=== PATIENT | male | born 1980 | race Two or more races ===

== ENCOUNTER 2020-03-07 08:11 | Inpatient (IN) | payer OTHER ==
[~2020-03-07] VITALS: Ht 170.2 cm; Wt 96.2 kg
--- NOTE | 2020-03-07 08:11 | NUR ---
PT BIBRA FROM THE STREET C/O ALTERED MENTAL STATUS. PT IS AAOX2, NOT IN RESPIRATORY DISTRESS, HOOKED TO CHIEF CLINICAL OFFICER, KEPT RESTED AND COMFORTABLE. WILL CONTINUE TO MONITOR.
--- NOTE | 2020-03-07 08:20 | NUR ---
URINAL GIVEN BUT UANBLE TO PROVIDE URINE SPECIMEN THIS TIME.
[2020-03-07] MEDS ORDERED: LORAZEPAM INJ 2 MG/ML VIAL IVP ONE (08:30)
[2020-03-07] MEDS ORDERED: IV NS 0.9% 1,000 ML BAG IV ONE ×2 (08:30→09:30)
--- NOTE | 2020-03-07 08:30 | NUR ---
SEEN AND EXAMINED BY DR. DEWEY.
[2020-03-07] MEDS ORDERED: LORAZEPAM INJ 2 MG/ML VIAL ONE (08:33)
[2020-03-07 09:09] LABS: MONOCYTES # (AUTO) 0.9 /CMM (0.1-1.30); NEUTROPHILS # (AUTO) 14.3 /CMM (1.8-8.9); WHITE BLOOD COUNT (AUTO) 16.7 K/uL (4.3-11.0)
[2020-03-07 09:11] LABS: BASOPHILS % (AUTO) 0.2 % (0.0-2.0); HEMATOCRIT 51 % (39-51); HEMOGLOBIN 16.7 g/dL (13.5-17.5); LYMPHOCYTES # (AUTO) 1.5 /CMM (0.8-4.8); LYMPHOCYTES % (AUTO) 8.9 % (20.0-44.0); MEAN CORPUSCULAR HGB CONC 33 g/dl (31.0-36.0); MEAN CORPUSCULAR VOLUME 89 fL (80-96); MONOCYTES % (AUTO) 5.5 % (2.0-12.0); NEUTROPHILS % (AUTO) 85.4 % (43.0-81.0); PLATELET COUNT (AUTO) 574 /CMM (150-450); RED BLOOD CELL COUNT(AUTO) 5.74 MIL/uL (4.5-6.0)
--- NOTE | 2020-03-07 09:17 | NUR ---
BUSINESS LAW PROFESSOR AT BEDSIDE FOR XRAY.
[2020-03-07 09:22] LABS: ALBUMIN 4.3 g/dL (3.4-5.0); ALCOHOL, BLOOD < 3 mg/dL (0-0); ALKALINE PHOSPHATASE 94 U/L (46-116); BILIRUBIN,DIRECT 0.1 mg/dL (0.0-0.2); BILIRUBIN,TOTAL 0.6 mg/dL (0.2-1.0); CALCIUM, SERUM 8.5 mg/dL (8.5-10.1); CARBON DIOXIDE 15 mmol/L (21-32); CHLORIDE 98 mmol/L (98-107); CREATININE 5.5 mg/dL (0.6-1.3); GLUCOSE 130 mg/dL (74-106); SODIUM SERUM 135 mmol/L (136-145); TOTAL PROTEIN, SERUM 9.1 g/dL (6.4-8.2); UREA NITROGEN, BLOOD 44 mg/dL (7-18)
[2020-03-07 09:24] LABS: ACETAMINOPHEN 0 ug/ml (10-30)
[2020-03-07 09:26] LABS: POTASSIUM 6.3 mmol/L (3.5-5.1)
[2020-03-07] MEDS ORDERED: CEFEPIME 1 GM in IV D5W 50 ML IV ONE (09:30)
[2020-03-07] MEDS ORDERED: VANCOMYCIN 1 GM in IV D5W 250 ML IV ONE (09:30)
--- NOTE | 2020-03-07 09:40 | NUR ---
PT IS WHEELED TO CT SCAN VIA [facility].
[2020-03-07 09:45] LABS: BILIRUBIN,URINE Negative (NEGATIVE); COLOR,URINE YELLOW (YELLOW); LEUKOCYTE ESTERASE ,URINE Negative (NEGATIVE); NITRITE, URINE Negative (NEGATIVE); PROTEIN,URINE Trace mg/dl (NEGATIVE); UGLUCOSE Negative (NEGATIVE); UROBILINOGEN,URINE 0.2 EU/dL (0.2)
[2020-03-07 09:46] LABS: BACTERIA,URINE Few /HPF (None Seen); SQUAMOUS EPITHELIAL CELL,UR Rare /HPF (None Seen)
[2020-03-07 09:52] LABS: ALANINE AMINOTRANSFERASE 3907 U/L (12-78); ASPARTATE AMINOTRANSFERASE 2806 U/L (15-37)
--- NOTE | 2020-03-07 11:44 | NUR ---
LAB CALLED PT COVID NEGATIVE (-)
[2020-03-07 12:16] LABS: OSMOLALITY,SERUM 312 mOS/kg (278-305); OSMOLALITY,URINE 152 mOS/kg (340-1090)
--- NOTE | 2020-03-07 12:18 | NUR ---
PT IS BACK FROM THE CT SCAN.
[2020-03-07 14:09] LABS: CREATINE KINASE, TOTAL 101600 U/L (39-308)
[2020-03-07] MEDS ORDERED: Z GUARD REMEDY 2 OZ OINT TP PRN (14:30)
[2020-03-07] MEDS ORDERED: IV NS 0.9% 1,000 ML IV PRN ×2 (14:30→16:01)
--- NOTE | 2020-03-07 15:00 | NUR ---
BEHAVIORAL HEALTH CARE MANAGER AT BEDSIDE FOR ULTRASOUND.
[2020-03-07] MEDS ORDERED: HEPARIN SODIUM, PORCINE 5000 UNITS/1 ML VIAL IV ONE (16:30)
[2020-03-07] MEDS ORDERED: HEPARIN SODIUM, PORCINE 5000 UNITS/1 ML VIAL ONE (16:31)
[2020-03-07] MEDS: HEPARIN INFUSION/D5W 500 ML IV PRN (16:35)
--- NOTE | 2020-03-07 16:35 | NUR ---
HEPARIN DRIP STARTED REPEAT COAGS AFTER 6HRS AT 2235H.
[2020-03-07] MEDS ORDERED: SODIUM POLYSTYRENE SULFONATE 15 G/60 ML BOTTLE PO ONE (20:00)
--- NOTE | 2020-03-07 20:49 | NUR ---
SPOKE TO PHARMACY REGARDING HEPARIN DRIP, AT 2098, WILL TITRATE DRIP BASED ON PROTOCOL. ALSO, TO PLACE ORDER FOR EDGAR @6846
--- NOTE | 2020-03-07 23:07 | NUR ---
PER PROTOCOL, NO CHANGE TO HEPARIN DRIP.
[2020-03-07 23:27] LABS: BASOPHILS % (AUTO) 0.1 % (0.0-2.0); HEMATOCRIT 48 % (39-51); HEMOGLOBIN 15.8 g/dL (13.5-17.5); LYMPHOCYTES # (AUTO) 1.6 /CMM (0.8-4.8); LYMPHOCYTES % (AUTO) 12.2 % (20.0-44.0); MEAN CORPUSCULAR HGB CONC 33 g/dl (31.0-36.0); MEAN CORPUSCULAR VOLUME 87 fL (80-96); MONOCYTES # (AUTO) 0.7 /CMM (0.1-1.30); MONOCYTES % (AUTO) 5.3 % (2.0-12.0); NEUTROPHILS # (AUTO) 10.8 /CMM (1.8-8.9); NEUTROPHILS % (AUTO) 82.4 % (43.0-81.0); PLATELET COUNT (AUTO) 435 /CMM (150-450); RED BLOOD CELL COUNT(AUTO) 5.51 MIL/uL (4.5-6.0)
[2020-03-07] MEDS ORDERED: FUROSEMIDE 100 MG/10 ML VIAL IV ONE (23:30)
[2020-03-07] MEDS ORDERED: Sodium Bicarbonate 100 MEQ in IV D5/0.45 NACL 1,000 ML IV PRN (23:30)
[2020-03-07 23:38] LABS: ALBUMIN 3.1 g/dL (3.4-5.0); BILIRUBIN,TOTAL 0.6 mg/dL (0.2-1.0); CALCIUM, SERUM 6.8 mg/dL (8.5-10.1); CREATININE 5.6 mg/dL (0.6-1.3); PHOSPHORUS 7.6 mg/dL (2.5-4.9); POTASSIUM 4.6 mmol/L (3.5-5.1); TOTAL PROTEIN, SERUM 6.8 g/dL (6.4-8.2)
[2020-03-07] MEDS ORDERED: SODIUM BICARBONATE SYR 50 MEQ/50 ML DISP.SYRIN ONE (23:56)
[2020-03-08] MEDS ORDERED: FUROSEMIDE 40 MG/4 ML VIAL ONE (00:07)
--- NOTE | 2020-03-08 00:25 | NUR ---
PT HAD A BM.
--- NOTE | 2020-03-08 03:08 | NUR ---
PT AMBULATED TO THE RESTROOM AND BACK.
[2020-03-08] MEDS ORDERED: HYDROCODONE/APAP 5/325MG TABLET ONE ×4 (03:28→19:15)
[2020-03-08] MEDS: HYDROCODONE/APAP 5/325MG TABLET PO PRN ×3 (03:29→13:00)
[2020-03-08 05:04] LABS: BASOPHILS # (AUTO) 0.1 /CMM (0.0-0.2); HEMATOCRIT 41 % (39-51); HEMOGLOBIN 13.3 g/dL (13.5-17.5); LYMPHOCYTES # (AUTO) 1.9 /CMM (0.8-4.8); LYMPHOCYTES % (AUTO) 16.7 % (20.0-44.0); MEAN CORPUSCULAR HGB CONC 32 g/dl (31.0-36.0); MEAN CORPUSCULAR VOLUME 87 fL (80-96); MONOCYTES # (AUTO) 0.2 /CMM (0.1-1.30); MONOCYTES % (AUTO) 1.6 % (2.0-12.0); NEUTROPHILS % (AUTO) 80.7 % (43.0-81.0); PLATELET COUNT (AUTO) 338 /CMM (150-450); RED BLOOD CELL COUNT(AUTO) 4.74 MIL/uL (4.5-6.0); WHITE BLOOD COUNT (AUTO) 11.1 K/uL (4.3-11.0)
[2020-03-08 05:31] LABS: CALCIUM, SERUM 6.4 mg/dL (8.5-10.1); MAGNESIUM 2.5 mg/dL (1.8-2.4); POTASSIUM 3.4 mmol/L (3.5-5.1)
[2020-03-08 05:33] LABS: PHOSPHORUS 8.4 mg/dL (2.5-4.9)
--- NOTE | 2020-03-08 05:37 | NUR ---
APTT NOTED TO BE 40.2, PER PROTOCOL RATE WILL BE INCREASE +150. RATE AT 1250 UNITS/HR.
[2020-03-08 05:43] LABS: THYROID STIMULATING HORMONE 2.113 uIU/mL (0.358-3.74)
[2020-03-08] MEDS ORDERED: PANTOPRAZOLE 40 MG TABLET.DR PO ONE (08:29)
[2020-03-08] MEDS: PANTOPRAZOLE 40 MG TABLET.DR PO SCH (08:30)
--- NOTE | 2020-03-08 08:45 | NUR ---
troponin results of 2.[address] watts awaiting response
--- NOTE | 2020-03-08 10:30 | NUR ---
dr. watts responded. per dr watts, 'ok' nno given
[2020-03-08] MEDS: Sodium Bicarbonate 100 MEQ in IV D5/0.45 NACL 1,000 ML IV SCH ×2 (11:00→17:22)
--- NOTE | 2020-03-08 11:35 | NUR ---
Engineer Sergeant Consult: SW consult requested by inpatient for a 39year old male for homelessness. SW met with pt at ER bed 10 and conducted an assessment. Pt made poor eye contact during the assessment. Pt. alert and oriented x4 ( time, place, self, and situation). Pt appears to be in an anxious mood with distressed affect. Pt.'s speech is within normal limits. Patient states for dehydration and stated pain in the left leg. Pt. denies suicidal and homicidal ideation. Pt denies any visual or auditory hallucinations. Pt. stated he has no Hx. mental health & no psychotropic medications. Pt. stated has a history of substance abuse (methamphetamine). Pt urine results are positive for methamphetamine. Pt. also states he is been using for quite some time. Pt. appear ungroomed (dirty), malodorous, and had inappropriate to no clothing. Pt. appears to be ambulatory with a steady gait. Pt stated he is experiencing homelessness and has no other additional support system. Pt states he has been homeless for quite some time and has been living in [facility] for over a year. Pt did not give a specific location. SW also states has no income regarding his financial status. SW provided homeless resources which included shelters, showers, food prince, meals, health clinics, mental health clinics, substance abuse,and sober living arrangements referrals. Pt. was receptive to resources. [facility] provided the [phone] [facility] list. SW referred pt. to intermediate [facility] [address] [place] [phone] as nearest location. Homeless resources also include Mental health and health clinics include [facility] [address] [place] [address] ([phone]). [facility] [address] [facility] [address] ([phone]); Medical clinics: [facility] [address] [facility] [address] [address] [facility] [address], [place], [place]. ([phone]); [facility] [address] [facility], [address], [place]. [facility] provided the pt with a brief substance abuse intervention with referrals to substance abuse programs; [facility] Substance Abuse Self-help line ([phone]); [facility] [address] [place] [address] ([phone]); [facility] [address] [place] [address] ([phone]); [facility] ([phone]; [facility] ([phone]); [facility] ([phone]); [facility] ([phone]). Pt. was given the proper resources needed to find intermediate placement but denies services. SW offers clothing and pt denies resources. SW had pt. sign the homeless waiver form & it was filed in pt.'s chart. Plan: Pt. was given the appropriate resources to find intermediate placement, substance abuse clinics, and a list of sober living arrangements. Pt will be transported by his own means of transport.
[2020-03-08 12:07] LABS: *SPE ALBUMIN 3.2 g/dL (2.9-4.4); *SPE ALPHA-1-GLOBULIN 0.3 g/dL (0.0-0.4); *SPE GLOBULIN, TOTAL 3.2 g/dL (2.2-3.9); *SPE M-SPIKE Not Observed g/dL (Not Observed)
--- NOTE | 2020-03-08 12:20 | NUR ---
per lab ptt is still in process, still pending
[2020-03-08] MEDS: HEPARIN INFUSION/D5W 500 ML IV PRN (13:00)
--- NOTE | 2020-03-08 15:19 | NUR ---
POSITIVE FOR MRSA ON NARES
--- NOTE | 2020-03-08 16:00 | NUR ---
pt complaining of pain, tenderness and swelling on his left butt cheek. also warn and tender to touch. dr watts made aware. wound consult ordered.
--- NOTE | 2020-03-08 16:11 | NUR ---
urine collected sent to lab
[2020-03-08 18:30] LABS: CREATININE, URINE 210.7 MG/DL (30.0-125.0); URINE TOTAL PROTEIN 248.6 mg/dL (0-11.9)
[2020-03-08 18:31] LABS: BILIRUBIN,URINE SMALL (NEGATIVE); COLOR,URINE YELLOW (YELLOW); LEUKOCYTE ESTERASE ,URINE NEGATIVE (NEGATIVE); NITRITE, URINE NEGATIVE (NEGATIVE); PH,URINE 5.5 (5.0-8.0); PROTEIN,URINE 100 mg/dl (NEGATIVE); UGLUCOSE NEGATIVE (NEGATIVE); UROBILINOGEN,URINE 0.2 EU/dL (0.2)
[2020-03-08 18:58] LABS: BACTERIA,URINE Few /HPF (None Seen); SQUAMOUS EPITHELIAL CELL,UR Few /HPF (None Seen); WBC,URINE 0-2 /HPF (0-3)
[2020-03-08 18:59] LABS: COARSE GRANULAR CASTS,URINE Few /LPF (None Seen)
--- NOTE | 2020-03-08 19:44 | NUR ---
CALLED LAB REGARDING DRAW.
--- NOTE | 2020-03-08 19:57 | NUR ---
PLASTIC EYE TECHNICIAN AT BEDSIDE
--- NOTE | 2020-03-08 21:17 | NUR ---
CALLED LAB REGARDING APTT
--- NOTE | 2020-03-08 21:27 | NUR ---
PER PROTOCOL, NO CHANGES WILL BE MADE TO HEPARIN DRIP.
--- NOTE | 2020-03-08 21:27 | NUR ---
CO SIGNED FOR MILENA JOHNSON'S HEPARIN DRIP. PTT 63.9, NO CHANGES MADE TO HEPARIN DRIP PER PROTOCOL.
[2020-03-08] MEDS ORDERED: ZOLPIDEM TARTRATE 5 MG TABLET ONE (22:48)
[2020-03-08] MEDS: ZOLPIDEM TARTRATE 5 MG TABLET PO PRN (22:50)
[2020-03-09] MEDS ORDERED: SODIUM BICARBONATE SYR 50 MEQ/50 ML DISP.SYRIN ONE (00:06)
[2020-03-09] MEDS: Sodium Bicarbonate 100 MEQ in IV D5/0.45 NACL 1,000 ML IV SCH ×4 (00:15→23:24)
[2020-03-09 00:57] LABS: EOSINOPHIL,URINE None Seen
--- NOTE | 2020-03-09 02:41 | NUR ---
PT AWAKE IN BED, VSS.
[2020-03-09 04:34] LABS: BASOPHILS % (AUTO) 0.1 % (0.0-2.0); EOSINOPHILS % (AUTO) 0.6 % (0.0-6.0); HEMATOCRIT 32 % (39-51); HEMOGLOBIN 11.1 g/dL (13.5-17.5); LYMPHOCYTES # (AUTO) 1.2 /CMM (0.8-4.8); LYMPHOCYTES % (AUTO) 16.6 % (20.0-44.0); MEAN CORPUSCULAR HGB CONC 34 g/dl (31.0-36.0); MEAN CORPUSCULAR VOLUME 85 fL (80-96); MONOCYTES # (AUTO) 0.4 /CMM (0.1-1.30); MONOCYTES % (AUTO) 5.9 % (2.0-12.0); NEUTROPHILS # (AUTO) 5.5 /CMM (1.8-8.9); NEUTROPHILS % (AUTO) 76.8 % (43.0-81.0); PLATELET COUNT (AUTO) 288 /CMM (150-450); RED BLOOD CELL COUNT(AUTO) 3.84 MIL/uL (4.5-6.0); WHITE BLOOD COUNT (AUTO) 7.2 K/uL (4.3-11.0)
--- NOTE | 2020-03-09 04:56 | NUR ---
AWAITING FOR PTT RESULTS.
[2020-03-09 04:57] LABS: ALBUMIN 2.2 g/dL (3.4-5.0); BILIRUBIN,TOTAL 0.5 mg/dL (0.2-1.0); MAGNESIUM 2.5 mg/dL (1.8-2.4); POTASSIUM 3.1 mmol/L (3.5-5.1); TOTAL PROTEIN, SERUM 5.3 g/dL (6.4-8.2)
--- NOTE | 2020-03-09 05:32 | NUR ---
CALLED LAB REGARING PTT RESULTS.
--- NOTE | 2020-03-09 05:40 | NUR ---
TROP 1.509
--- NOTE | 2020-03-09 06:40 | NUR ---
RECIEVED CALL FROM LAB, PTT 82.6. WILL HOLD INFUSION FOR 30MINUTES, THEN DECREASE RATE BY 150 UNITS/HR PER PROTOCOL.
--- NOTE | 2020-03-09 07:05 | NUR ---
XRAY AT BEDSIDE
[2020-03-09] MEDS: HEPARIN INFUSION/D5W 500 ML IV PRN ×2 (07:10→10:01)
[2020-03-09 07:39] LABS: CALCIUM, SERUM 5.7 mg/dL (8.5-10.1); CREATININE 8.1 mg/dL (0.6-1.3)
[2020-03-09 07:40] LABS: PHOSPHORUS 10.3 mg/dL (2.5-4.9)
[2020-03-09] MEDS ORDERED: PANTOPRAZOLE 40 MG TABLET.DR PO ONE (08:06)
[2020-03-09] MEDS: PANTOPRAZOLE 40 MG TABLET.DR PO SCH (08:30)
[2020-03-09] MEDS ORDERED: HYDROCODONE/APAP 5/325MG TABLET ONE (09:12)
[2020-03-09] MEDS: HYDROCODONE/APAP 5/325MG TABLET PO PRN ×3 (10:00→20:51)
--- NOTE | 2020-03-09 11:46 | NUR ---
[facility] 310-2 MARY
--- NOTE | 2020-03-09 12:38 | NUR ---
report given to sabina tripp at 3west pt will go to 323 per charge nurse and primary rn, not 310.
[2020-03-09 13:00] VITALS: BP 115/74
--- NOTE | 2020-03-09 13:05 | NUR ---
transferred to 323-2, bedside report given to sabina
--- NOTE | 2020-03-09 13:10 | NUR ---
RN NOTES RECEIVED REPORT FROM ISAIAS WALL RN. NO APPARENT RESPIRATORY DISTRESS NOTED. NO COMPLAINED OF PAIN NOTED AT THIS TIME. WILL CONTINUE TO MONITOR.
--- NOTE | 2020-03-09 13:20 | NUR ---
RN/NOTES PATIENT REFUSED FOR SKIN ASSESSMENT/WOUND PHOTO.
[2020-03-09 16:00] VITALS: BP 114/76
[2020-03-09] MEDS: SEVELAMER CARBONATE 800 MG TABLET PO SCH (18:17)
--- NOTE | 2020-03-09 19:46 | NUR ---
TELE/RN NOTES PATIENT IS ON BED. NO APPARENT RESPIRATORY DISTRESS NOTED. NO COMPLAINED OF NOTED AT THIS TIME. IV ACCESS AT RIGHT AC # 20 WITH IV FLUID NA BICARBONATE 1L AT 125ML/HR. PATIENT IS ON HEPATIN DRIP 1100U/HR RUNNING WELL. APTT 60.6 NO CHANGES. WILL ENDORSED TO CONSOLE ASSEMBLER FOR MARJORIE.
[2020-03-09 20:00] VITALS: BP 112/77
--- NOTE | 2020-03-09 22:00 | NUR ---
pt commented he has not voided the whole day bladder scan shows 145 ml in the bladder text to MD perez order to check with bladder scan Q1 hours and if greater then 350 ml insert villarreal related this news to the patient
[2020-03-10] VITALS (7 sets, daily range): BP systolic 94–125; BP diastolic 55–83
--- NOTE | 2020-03-10 00:49 | NUR ---
bladder scanned 65 ml
--- NOTE | 2020-03-10 02:00 | NUR ---
bLADDER SCANNED 60 ML
--- NOTE | 2020-03-10 04:30 | NUR ---
BLADDER SCAN 143ML
--- NOTE | 2020-03-10 05:53 | NUR ---
ALERT AND ORIENTATED X4 CONCERNED ABOUT NOT BEING ABLE TO URINATE AT 2200 I TEXTED THE MD AND MADE HIM AWARE OF THE SITUATION OF NOT VOIDING REPLY WAS BLADDER SCAN Q1HOUR VELOZ IF GRT THAN 350 BLADDER SCANED X4X 145 ML 65ML 60ML 142ML LAST TIME AT 0430
[2020-03-10 07:59] LABS: BASOPHILS % (AUTO) 0.1 % (0.0-2.0); EOSINOPHILS % (AUTO) 0.9 % (0.0-6.0); HEMATOCRIT 29 % (39-51); HEMOGLOBIN 9.7 g/dL (13.5-17.5); LYMPHOCYTES # (AUTO) 1.3 /CMM (0.8-4.8); LYMPHOCYTES % (AUTO) 23.4 % (20.0-44.0); MEAN CORPUSCULAR HGB CONC 33 g/dl (31.0-36.0); MEAN CORPUSCULAR VOLUME 87 fL (80-96); MONOCYTES # (AUTO) 0.4 /CMM (0.1-1.30); MONOCYTES % (AUTO) 6.3 % (2.0-12.0); NEUTROPHILS # (AUTO) 3.9 /CMM (1.8-8.9); NEUTROPHILS % (AUTO) 69.3 % (43.0-81.0); PLATELET COUNT (AUTO) 152 /CMM (150-450); RED BLOOD CELL COUNT(AUTO) 3.37 MIL/uL (4.5-6.0); WHITE BLOOD COUNT (AUTO) 5.7 K/uL (4.3-11.0)
--- NOTE | 2020-03-10 08:00 | NUR ---
tele shaker repairer: notes pt complaining of bladder pain, still hasn't voided since yesterday. bladder scan done with 150ml, pt is on strict i and o. pt agreed for villarreal catheter. made aware.
--- NOTE | 2020-03-10 08:06 | NUR ---
WOUND CARE CONSULT: PT PRESENTS WITH SCRATCH GONZALES TO LEFT BUTTOCK WITH EDEMA AND INDURATION OF ENTIRE BUTTOCK, PRESENT ON ADMISSION. PT REPORTS TENDERNESS TO ENTIRE LEFT BUTTOCK. DISCUSSED WITH PLATFORM MATERIAL HANDLING SUPERVISOR AND NURSING STAFF. RN TO DISCUSS WITH PMD. PT IS CONTINENT AND INDEPENDENT WITH BED MOBILITY. WILL SEE PRN. Addendum: 03/10/20 at 0809 by ROYER SHAH WNDNU Amended: Links added.
[2020-03-10] MEDS: Sodium Bicarbonate 100 MEQ in IV D5/0.45 NACL 1,000 ML IV SCH ×4 (08:08→23:21)
[2020-03-10 08:35] LABS: MAGNESIUM 2.2 mg/dL (1.8-2.4); POTASSIUM 3.5 mmol/L (3.5-5.1)
[2020-03-10 08:40] LABS: CALCIUM, SERUM 5.3 mg/dL (8.5-10.1); CREATININE 9.6 mg/dL (0.6-1.3); PHOSPHORUS 9.9 mg/dL (2.5-4.9)
[2020-03-10] MEDS: SEVELAMER CARBONATE 800 MG TABLET PO SCH ×3 (08:50→17:34)
[2020-03-10] MEDS: PANTOPRAZOLE 40 MG TABLET.DR PO SCH (08:50)
--- NOTE | 2020-03-10 09:00 | NUR ---
tele lean manufacturing engineer: notes villarreal catheter [id number] inserted, jacob. well. no bleeding noted. will continue to monitor.
[2020-03-10] MEDS: ONDANSETRON HCL/PF 4 MG/2 ML VIAL IVP PRN (11:23)
[2020-03-10] MEDS: ACETAMINOPHEN 325 MG TABLET PO PRN (12:10)
--- NOTE | 2020-03-10 12:25 | NUR ---
m/s overlock operator: notes dr watts here and informed md re: left buttock possible abscess and also pt doesn't feel good with s/s of no appetite, nauseous, body aches with headache. per dr. watts pt has rhabdomyolysis. also pt has been asking if his villarreal can be remove. dr. watts will see pt as stated.
--- NOTE | 2020-03-10 12:45 | NUR ---
tele assistant production manager: md visit dr. watts at bedside and and informed pt that we need to monitor his i&o and with orders for us on left buttock for possible abscess and start vanco and zosyn pharmacy to dose. orders carried out and acknowledged.
[2020-03-10] MEDS: CALCIUM ACETATE 667 MG TABLET PO SCH ×2 (13:09→17:33)
[2020-03-10] MEDS: HYDROCODONE/APAP 5/325MG TABLET PO PRN ×2 (13:09→22:17)
[2020-03-10] MEDS ORDERED: VANCOMYCIN 1 GM in IV D5W 250 ML IV ONE (14:00)
[2020-03-10] MEDS: LORAZEPAM 1 MG TABLET PO PRN (15:07)
[2020-03-10] MEDS: PIPERACILLIN /TAZOBACTAM 3.375 G in IV D5W 50 ML IV SCH ×2 (15:11→22:04)
--- NOTE | 2020-03-10 16:00 | NUR ---
tele cut filer: notes pt sounds asleep. no distress noted. will continue to monitor.
--- NOTE | 2020-03-10 19:25 | NUR ---
tele potato chip cooker machine: notes report given to trinity banuelos) for continuity of care.
--- NOTE | 2020-03-10 19:30 | NUR ---
PSYCHIATRIC ASSISTANT OPENING NOTE PATIENT RECEIVED IN BED. A/OX4. TOLERATING ROOM AIR. RESPIRATIONS ARE EVEN AND UNLABORED. NO S/S SOB NOTED. C/O PAIN, WILL SEE WHEN PAIN MEDICATION IS AVAILABLE. EXTERNAL TELE MONITOR READ SINUS RHTYHM . IN NO APPARENT DISTRESS. IV ACCESS IN LEFT HAND PATENT AND SALINE LOCKED, WELL RAC#20 RUNNING BICARD @150ML/HR. VELOZ CATHETER IS PRESENT AND DRAINING TO GRAVITY, BED IS LOW AND LOCKED, HOB ELEVATED IN SEMI FOWLERS, SIDE RIALS UP X2, GREGORY LIGHT WITHIN REACH. WILL CONTINUE TO MONITOR THROUGHOUT SHIFT.
[2020-03-10] MEDS: ZOLPIDEM TARTRATE 5 MG TABLET PO PRN (20:48)
--- NOTE | 2020-03-10 20:51 | NUR ---
telemedicine physician note administered prn ambien per patient request. patient is in pain but would like sleeping aid first.
[2020-03-11] VITALS: BP_SYST 116; BP_SYST 118; BP_DIAS 79; BP_DIAS 82
[2020-03-11] MEDS: HYDROCODONE/APAP 5/325MG TABLET PO PRN ×4 (03:26→18:28)
[2020-03-11 04:00] VITALS: BP 110/62
[2020-03-11] MEDS: PIPERACILLIN /TAZOBACTAM 3.375 G in IV D5W 50 ML IV SCH ×4 (06:17→23:02)
[2020-03-11 06:45] LABS: BASOPHILS % (AUTO) 0.2 % (0.0-2.0); EOSINOPHILS % (AUTO) 1.2 % (0.0-6.0); HEMATOCRIT 28 % (39-51); HEMOGLOBIN 9.7 g/dL (13.5-17.5); LYMPHOCYTES # (AUTO) 1.3 /CMM (0.8-4.8); MEAN CORPUSCULAR HGB CONC 35 g/dl (31.0-36.0); MEAN CORPUSCULAR VOLUME 84 fL (80-96); MONOCYTES # (AUTO) 0.5 /CMM (0.1-1.30); MONOCYTES % (AUTO) 7.8 % (2.0-12.0); NEUTROPHILS # (AUTO) 4.4 /CMM (1.8-8.9); NEUTROPHILS % (AUTO) 70.8 % (43.0-81.0); PLATELET COUNT (AUTO) 243 /CMM (150-450); RED BLOOD CELL COUNT(AUTO) 3.36 MIL/uL (4.5-6.0); WHITE BLOOD COUNT (AUTO) 6.3 K/uL (4.3-11.0)
[2020-03-11 07:20] LABS: ALBUMIN 1.8 g/dL (3.4-5.0); BILIRUBIN,TOTAL 0.5 mg/dL (0.2-1.0); MAGNESIUM 1.8 mg/dL (1.8-2.4); TOTAL PROTEIN, SERUM 4.7 g/dL (6.4-8.2)
--- NOTE | 2020-03-11 07:30 | NUR ---
CHAINSTITCH HEMMER CLOSING NOTE PATIENT RESTING IN BED. A/OX4. TOLERATING ROOM AIR. NO RESP DISTRESS. MANAGED PAIN WITH NORCO. TELE MONITOR READ SINUS RHTYHM .NO DISTRESS. IV ACCESS MAINTAINED RAC#20 RUNNING BICARD @150ML/HR. VELOZ CATHETER IS MAINTAINED. PATIENT DID HAVE COMPLAINT THAT HE FELT IF HE NEEDED TO PEE. I DID DEFLATE THE VELOZ AND ADVANCE AND REINFLATE. URINE DID COME OUT. BED REMAINS LOW AND LOCKED, HOB ELEVATED IN SEMI FOWLERS, SIDE RIALS UP X2, GREGORY LIGHT WITHIN REACH. WILL ENDORSE TO NEXT SHIFT.
--- NOTE | 2020-03-11 07:30 | NUR ---
FIRE HOSE CURER OPENING NOTE RECEIVED PATIENT IN BED. A/O X4. NO SOB NOTED. NO S/SX OF RESPIRATORY DISTRESS. IN PAIN, NORCO GIVEN ORDERED. IV SITE R AC #20. L HAND #20 G. SAFETY MEASURES MAINTAINED. BED IN LOWEST POSITION, LOCKED. SIDE RAILS UP X 2. CALL LIGHT WITHIN REACH. WILL CONTINUE PLAN OF CARE.
--- NOTE | 2020-03-11 07:40 | NUR ---
GANG MOWER OPERATOR NOTES RECEIVED A CALL FROM [facility] (LAB), CRITICAL LAB VALUE K+ 2.8 Ca 5.[address] SARAH WHITESIDE MADE AWARE. NO NEW ORDERS.
[2020-03-11 07:45] LABS: CALCIUM, SERUM 5.1 mg/dL (8.5-10.1); CREATININE 10.7 mg/dL (0.6-1.3); POTASSIUM 2.8 mmol/L (3.5-5.1)
[2020-03-11 07:46] LABS: PHOSPHORUS 9.6 mg/dL (2.5-4.9)
[2020-03-11 08:00] VITALS: BP 201/103
[2020-03-11] MEDS: CALCIUM ACETATE 667 MG TABLET PO SCH ×3 (09:21→18:28)
[2020-03-11] MEDS: PANTOPRAZOLE 40 MG TABLET.DR PO SCH (09:21)
[2020-03-11] MEDS: SEVELAMER CARBONATE 800 MG TABLET PO SCH ×3 (09:21→18:28)
[2020-03-11] MEDS: Sodium Bicarbonate 100 MEQ in IV D5/0.45 NACL 1,000 ML IV SCH ×2 (09:26→18:29)
[2020-03-11] MEDS: POTASSIUM CHLORIDE 20 MEQ TAB.PRT.SR PO SCH ×3 (09:31→12:32)
--- NOTE | 2020-03-11 10:15 | NUR ---
RN NIGHT NOTES RECEIVED ANOTHER CALL FROM LAB NAMED TATI, CRITICAL LAB VALUE [id number]. INFORMED DR. SARAH WHITESIDE. NO NEW ORDERS.
[2020-03-11 12:00] VITALS: BP 120/78
[2020-03-11 16:00] VITALS: BP 132/84
[2020-03-11] MEDS ORDERED: HEPARIN INFUSION/D5W 500 ML IV PRN (18:00)
[2020-03-11] MEDS ORDERED: HEPARIN SODIUM, PORCINE 5000 UNITS/1 ML VIAL IV ONE (19:15)
[2020-03-11] MEDS: ZOLPIDEM TARTRATE 5 MG TABLET PO PRN (19:24)
--- NOTE | 2020-03-11 20:51 | NUR ---
URBAN DESIGN CONSULTANT CLOSING NOTES PATIENT IN BED. A/O X4. NO SOB NOTED. VERBALIZING PAIN ON THE L LOWER EXT. NORCO PRN GIVEN. MD IS MADE AWARE, DR SMITH ORDERED FOR CT LUMBAR SPINE, CT PELVIS AND ARTERIAL DUPLEX. VELOZ CATH NO OUTPUT. FLUSHED AND IRRIGATED DONE. BOTH IV LINES WERE OCCLUDED. TRIED TO FLUSH BUT HAS RESISTANCE. ORDERED FOR MIDLINE INSERTION. DR THOMAS REINSERTED ON THE LJ. ROUTINE MEDS WERE GIVEN ORDERED. SAFETY MEASURES MAINTAINED. BED IN LOWEST POSITION, LOCKED. SIDE RAILS UP X 2. CALL LIGHT WITHIN REACH. WILL ENDORSE TO FIELD ASSEMBLY SUPERVISOR FOR CONTINUITY OF CARE.
[2020-03-11 20:53] VITALS: BP 115/67
[2020-03-11] MEDS ORDERED: LORAZEPAM INJ 2 MG/ML VIAL IV ONE (21:00)
--- NOTE | 2020-03-11 22:09 | NUR ---
INFORMED DR WARD RE: APTT RESULT TODAY AND RESULT OF US OF THE LEFT EXTREMITY NEGATIVE FOR STENOSIS OR THROMBOSIS. AND CLARIFIED IF HEPARIN 6,000 UNITS BOLUS AND HEPARIN DRIP STILL TO BE GIVEN.
[2020-03-12 00:12] VITALS: BP 125/81
[2020-03-12] MEDS: HYDROCODONE/APAP 5/325MG TABLET PO PRN ×3 (00:49→18:52)
[2020-03-12] MEDS: Sodium Bicarbonate 100 MEQ in IV D5/0.45 NACL 1,000 ML IV SCH ×4 (02:23→23:26)
[2020-03-12] MEDS: LORAZEPAM 1 MG TABLET PO PRN ×3 (03:27→16:26)
[2020-03-12] MEDS: ACETAMINOPHEN 325 MG TABLET PO PRN ×2 (03:27→14:31)
[2020-03-12 04:56] VITALS: BP 139/89
--- NOTE | 2020-03-12 06:00 | NUR ---
USED CAR LOT ATTENDANT CLOSING NOTES: PATIENT IN BED, ASLEEP, EASILY AROUSABLE. NO S/S OF DISTRESS NOTED. COMPLAINED OF PAIN, PRN MEDS GIVEN. CALL LIGHT WITHIN REACH. BED IN LOWEST AND LOCKED POSITION.
--- NOTE | 2020-03-12 06:02 | NUR ---
INFORMED DR HYDE RE: URINE OUTPUT ONLY 75 ML.
[2020-03-12] MEDS: PIPERACILLIN /TAZOBACTAM 3.375 G in IV D5W 50 ML IV SCH ×3 (06:18→22:38)
--- NOTE | 2020-03-12 06:24 | NUR ---
IV ON THE LEFT HAND G20 PULLED OUT BY THE PATIENT, TIP IS INTACT. NO BLEEDING NOTED.
[2020-03-12 07:09] LABS: BASOPHILS % (AUTO) 0.1 % (0.0-2.0); EOSINOPHILS % (AUTO) 2.3 % (0.0-6.0); HEMATOCRIT 31 % (39-51); HEMOGLOBIN 10.7 g/dL (13.5-17.5); LYMPHOCYTES # (AUTO) 1.4 /CMM (0.8-4.8); LYMPHOCYTES % (AUTO) 21.5 % (20.0-44.0); MEAN CORPUSCULAR HGB CONC 35 g/dl (31.0-36.0); MEAN CORPUSCULAR VOLUME 84 fL (80-96); MONOCYTES # (AUTO) 0.6 /CMM (0.1-1.30); MONOCYTES % (AUTO) 8.5 % (2.0-12.0); NEUTROPHILS # (AUTO) 4.4 /CMM (1.8-8.9); NEUTROPHILS % (AUTO) 67.6 % (43.0-81.0); PLATELET COUNT (AUTO) 257 /CMM (150-450); RED BLOOD CELL COUNT(AUTO) 3.69 MIL/uL (4.5-6.0); WHITE BLOOD COUNT (AUTO) 6.6 K/uL (4.3-11.0)
--- NOTE | 2020-03-12 07:15 | NUR ---
DUMPER OPERATOR OPENING NOTES RECEIVED PATIENT ASLEEP IN BED, EASILY AWAKENS. PT IS A/O X4, DENIES PAIN OR ANY DISCOMFORTS AT THIS TIME. ON ROOM AIR, BREATHING EVEN AND UNLABORED. EXTERNAL BEVERAGE SERVER SHOWS NSR WITH HR ON THE 70'S, NO S/S OF CARDIAC DISTRESS NOTED. MIDLINE ON LJ INTACT AND PATENT WITH IVF OF SODIUM BICARBONATE IN D5 1/2 NS AT 150ML INFUSING WELL. VELOZ IN PLACE WITH NO URINE OUTPUT NOTED AT THIS TIME. SAFETY MEASURES MAINTAINED: BED IN LOWEST POSITION, LOCKED. SIDE RAILS UP X 2 AND CALL LIGHT WITHIN REACH. WILL CONTINUE TO MONITOR PT ACCORDINGLY. .
[2020-03-12 07:31] LABS: ALBUMIN 1.6 g/dL (3.4-5.0); BILIRUBIN,TOTAL 0.4 mg/dL (0.2-1.0); MAGNESIUM 1.8 mg/dL (1.8-2.4); POTASSIUM 3.4 mmol/L (3.5-5.1); TOTAL PROTEIN, SERUM 4.7 g/dL (6.4-8.2)
[2020-03-12] MEDS: PANTOPRAZOLE 40 MG TABLET.DR PO SCH (08:35)
[2020-03-12] MEDS: SEVELAMER CARBONATE 800 MG TABLET PO SCH ×3 (08:35→18:11)
[2020-03-12] MEDS: CALCIUM ACETATE 667 MG TABLET PO SCH ×3 (08:36→18:11)
[2020-03-12 08:54] LABS: CALCIUM, SERUM 5.4 mg/dL (8.5-10.1); CREATININE 11.9 mg/dL (0.6-1.3); PHOSPHORUS 10.1 mg/dL (2.5-4.9)
[2020-03-12] MEDS ORDERED: CALCIUM CHLORIDE 1,000 MG/10 ML DISP.SYRIN IV ONE (09:30)
--- NOTE | 2020-03-12 09:49 | NUR ---
RN NOTES RECEIVED CALL FROM DIRECTOR OF ENVIRONMENTAL SERVICES CÉSAR WILDER PT HAS CRITICAL LABS: BUN 85, CREATININE 11.9, PHOS 10.1 AND CA 5.4, DR SMITH MADE AWARE WITH ORDER TO ADMINISTER CALCIUM GLUCONATE 2MG IV. WILL CARRY OUT ORDER.
[2020-03-12] MEDS ORDERED: Calcium Gluconate 1GM/10ML 9.3 MEQ in IV D5W 250 ML IV ONE (10:00)
--- NOTE | 2020-03-12 10:29 | NUR ---
RN NOTES PT NOTED ANXIOUS AND REQUESTED FOR ATIVAN, ATIVAN 1MG PO ADMINISTERED AT 1013. WILL CONTINUE TO MONITOR
--- NOTE | 2020-03-12 11:30 | NUR ---
RN NOTES PT C/O PAIN LEFT LEG PAIN, PRN NORCO 5/325 TAB PO ADMINISTERED AT 1129 WILL CONTINUE TO MONITOR AND REASSESS PT.
--- NOTE | 2020-03-12 12:21 | NUR ---
RN NOTES PT NOTED WHEEZING WITH MILD SOB ON EXERTION, SP02 CHECKED AND WAS 92%. SUPPLEMENTAL 02 VIA N/C @2LPM ADMINISTERED AND SP02 WENT UP TO 95% AND BREATHING IMPROVED. WILL CONTINUE TO MONITOR
--- NOTE | 2020-03-12 12:31 | NUR ---
RN NOTES DR LOPES SPOKE TO PT AND EXPLAINED ABOUT PLACEMENT OF HD CATHETER AND HD, PT VERBALIZED UNDERSTANDING. CONSENTS SIGNED AND FILED IN CHART.
--- NOTE | 2020-03-12 19:39 | NUR ---
CARE MANAGEMENT SPECIALIST CLOSING NOTES PATIENT AWAKE AND RESTING AT MODERATE HIGH BACKREST POSITION AT THIS TIME. A/O X4. ABLE TO MAKE NEEDS KNOWN. ON SUPPLEMENTAL 02 VIA N/C @ 2LPM, BREATHING EVEN AND UNLABORED. EXTERNAL SAMPLE TAILOR SHOWS NSR WITH HR ON THE 70'S, NO S/S OF CARDIAC DISTRESS NOTED. MIDLINE ON LJ INTACT AND PATENT WITH IVF RUNNING ORDERED. VELOZ IN PLACE WITH NO URINE OUTPUT OF 50ML THIS SHIFT. ALL NEEDS AND CARE ATTENDED WELL. SAFETY MEASURES MAINTAINED: BED IN LOWEST POSITION, LOCKED. SIDE RAILS UP X 2 AND CALL LIGHT WITHIN REACH. ENDORSED TO RN SOVEM FOR MARJORIE.
--- NOTE | 2020-03-12 19:40 | NUR ---
GEOSPATIAL INFORMATION TECHNOLOGIST OPENING NOTES RECEIVED PATIENT IN BED AWAKE AND ALERT X4. NO S/SX OF ACUTE RESPIRATORY DISTRESS NOTED. BREATHING EVEN AND UNLABORED. EXTERNAL TOOTH CUTTER PINION SHOWS NSR WITH HR ON THE 70'S. MIDLINE ON LJ INTACT AND PATENT WITH IVF OF SODIUM BICARBONATE IN D5 1/2 NS AT 150ML INFUSING WELL. DENIES PAIN OR DISCOMFORT AT THIS TIME. VELOZ IN PLACE WITH 50ML OF URINE OUTPUT NOTED AT THIS TIME. SAFETY MEASURES MAINTAINED. BED IN LOWEST POSITION, LOCKED. SIDE RAILS UP X 2 AND CALL LIGHT WITHIN REACH. WILL CONTINUE TO MONITOR PT ACCORDINGLY. .
[2020-03-12 20:00] VITALS: BP 142/100
--- NOTE | 2020-03-12 21:00 | NUR ---
BLOW OFF WORKER NOTES FOLLOW UP DR. THOMAS REGARDING INSERTION OF HD CATH AND INFORMED HIM ALSO THAT PATIENT IS SCREAMING FOR PAIN AND HE'S ONLY GETTING NORCO 5/[address] THOMAS ORDERED DILAUDID 0.5MG IV PRN AND HE'LL DO HD CATH INSERTION IN AM, ORDER NOTED AND CARRIED OUT
[2020-03-12] MEDS: HYDROMORPHONE 1 MG/1 ML DISP.SYRIN IV PRN (21:09)
[2020-03-13] VITALS: BP 135/93
[2020-03-13] MEDS: HYDROMORPHONE 1 MG/1 ML DISP.SYRIN IV PRN ×6 (01:18→22:45)
[2020-03-13] MEDS: LORAZEPAM 1 MG TABLET PO PRN ×2 (03:28→12:31)
[2020-03-13] MEDS: Sodium Bicarbonate 100 MEQ in IV D5/0.45 NACL 1,000 ML IV SCH ×3 (05:59→20:22)
[2020-03-13] MEDS: PIPERACILLIN /TAZOBACTAM 3.375 G in IV D5W 50 ML IV SCH ×3 (06:20→23:10)
--- NOTE | 2020-03-13 06:29 | NUR ---
NET DEVELOPMENT MANAGER NOTES: PATIENT REQUESTED HIS VELOZ CATHETER TO BE REMOVED. EXPLAINED PT RISK VS BENEFITS. INTERNIST MEDICAL DOCTOR MD SYLVIA AND CHARGE NURSE MADE AWARE. VELOZ CATHETER REMOVED PER PT'S REQUEST.
[2020-03-13 07:35] LABS: BASOPHILS % (AUTO) 0.2 % (0.0-2.0); EOSINOPHILS % (AUTO) 2.1 % (0.0-6.0); HEMATOCRIT 31 % (39-51); HEMOGLOBIN 10.6 g/dL (13.5-17.5); LYMPHOCYTES # (AUTO) 1.7 /CMM (0.8-4.8); MEAN CORPUSCULAR HGB CONC 35 g/dl (31.0-36.0); MEAN CORPUSCULAR VOLUME 83 fL (80-96); MONOCYTES # (AUTO) 0.8 /CMM (0.1-1.30); MONOCYTES % (AUTO) 8.7 % (2.0-12.0); NEUTROPHILS # (AUTO) 6.2 /CMM (1.8-8.9); PLATELET COUNT (AUTO) 278 /CMM (150-450); RED BLOOD CELL COUNT(AUTO) 3.69 MIL/uL (4.5-6.0); WHITE BLOOD COUNT (AUTO) 8.9 K/uL (4.3-11.0)
--- NOTE | 2020-03-13 07:45 | NUR ---
CORE SHAPER SIDES CLOSING NOTES PATIENT IN BED AWAKE AND ALERT X4. NO S/SX OF ACUTE RESPIRATORY DISTRESS NOTED. BREATHING EVEN AND UNLABORED. EXTERNAL CHANGE MANAGEMENT SPECIALIST SHOWS SR 87 . MIDLINE ON LJ INTACT AND PATENT WITH IVF OF SODIUM BICARBONATE IN D5 1/2 NS AT 150ML INFUSING WELL. DENIES PAIN OR DISCOMFORT AT THIS TIME. SAFETY MEASURES MAINTAINED. BED IN LOWEST POSITION, LOCKED. SIDE RAILS UP X 2 AND CALL LIGHT WITHIN REACH. WILL ENDORSE TO DAY SHIFT NURSE FOR CONTINUITY OF CARE.
[2020-03-13 07:57] LABS: ALBUMIN 1.7 g/dL (3.4-5.0); BILIRUBIN,TOTAL 0.4 mg/dL (0.2-1.0); MAGNESIUM 1.8 mg/dL (1.8-2.4); POTASSIUM 3.7 mmol/L (3.5-5.1)
[2020-03-13 08:00] VITALS: BP 138/83
[2020-03-13 08:42] LABS: CALCIUM, SERUM 5.9 mg/dL (8.5-10.1); PHOSPHORUS 9.9 mg/dL (2.5-4.9)
[2020-03-13] MEDS: PANTOPRAZOLE 40 MG TABLET.DR PO SCH (08:53)
[2020-03-13] MEDS: SEVELAMER CARBONATE 800 MG TABLET PO SCH ×3 (08:53→17:13)
[2020-03-13] MEDS: CALCIUM ACETATE 667 MG TABLET PO SCH ×3 (08:53→17:13)
--- NOTE | 2020-03-13 09:07 | NUR ---
MS/RN CRITICAL LABS LAB CALLED TO REPORT CRITICAL LAB VALUE CL 7.9 CA 5.[address] SMITH AT 0849, AWAITING RESPONSE, CHARGE NURSE AWARE. WILL CONTINUE TO MONITOR.
[2020-03-13] MEDS: HEPARIN SODIUM, PORCINE 5000 UNITS/1 ML VIAL SQ SCH ×2 (10:41→21:41)
[2020-03-13 12:00] VITALS: BP 146/63
[2020-03-13 16:32] VITALS: BP 152/94
--- NOTE | 2020-03-13 16:49 | NUR ---
MS/RN NOTE CONTACTED DR. GRAF AT [facility] FOR CONSULT REGARDING COMPARTMENT SYNDROME.
--- NOTE | 2020-03-13 17:23 | NUR ---
MS/RN HD CATH PLACEMENT DR. KRISTIN THOMAS PLACED HD CATH IN RIGHT GROIN. PATIENT TOLERATED WELL. WILL CONTINUE TO MONITOR.
--- NOTE | 2020-03-13 17:49 | NUR ---
MS/RN OPENING NOTE RECEIVED PATIENT FROM RAIL CAR LOADER. PATIENT A/O X4 AWAKE IN BED. PATIENT ON 3L OF OXYGEN VIA NASAL CANNULA, TOLERATING WELL. BREATHING EVEN, NON LABORED. RUE MIDLINE INTACT AND PATENT. NO ACUTE DISTRESS NOTED. SAFETY MEASURES IN PLACE, BED LOCKED AND IN LOWEST POSITION, CALL LIGHT WITHIN REACH. WILL CONTINUE TO MONITOR AND ENSURE SAFETY.
--- NOTE | 2020-03-13 18:33 | NUR ---
MS/RN OPENING NOTE PATIENT A/O X4 AWAKE IN BED. PATIENT ON 3L OF OXYGEN VIA NASAL CANNULA, TOLERATING WELL. BREATHING EVEN, NON LABORED. RUE MIDLINE INTACT AND PATENT. NO ACUTE DISTRESS NOTED. ATIVAN 1231, DILAUDID 1006, 1409, 1806. SAFETY MEASURES IN PLACE, BED LOCKED AND IN LOWEST POSITION, CALL LIGHT WITHIN REACH. WILL CONTINUE TO MONITOR AND ENSURE SAFETY.
[2020-03-13] MEDS: HYDROCODONE/APAP 5/325MG TABLET PO PRN (19:37)
--- NOTE | 2020-03-13 19:42 | NUR ---
RN NOTES PATIENT A/O X4 AWAKE IN BED. PATIENT ON 3L OF OXYGEN VIA NASAL CANNULA, TOLERATING WELL. BREATHING EVEN, NON LABORED. RUE MIDLINE INTACT AND PATENT. NO RESPIRATORY DISTRESS NOTED. PT REPORTED PAIN NORCO GIVEN FOR BREAKTHROUGH PAIN. SAFETY MEASURES IN PLACE, BED LOCKED AND IN LOWEST POSITION, CALL LIGHT WITHIN REACH. WILL CONTINUE TO MONITOR AND ENSURE SAFETY.
[2020-03-13 20:10] VITALS: BP 139/82
[2020-03-14] VITALS (7 sets, daily range): BP systolic 119–149; BP diastolic 72–92
[2020-03-14] MEDS: HYDROCODONE/APAP 5/325MG TABLET PO PRN ×2 (00:49→04:58)
[2020-03-14] MEDS: HYDROMORPHONE 1 MG/1 ML DISP.SYRIN IV PRN ×5 (02:47→22:55)
[2020-03-14] MEDS: Sodium Bicarbonate 100 MEQ in IV D5/0.45 NACL 1,000 ML IV SCH ×2 (03:14→09:41)
--- NOTE | 2020-03-14 06:33 | NUR ---
RN NOTES PATIENT A/O X4 AWAKE IN BED. PATIENT ON ROOM AIR, TOLERATING WELL. BREATHING EVEN, NON LABORED. RUE MIDLINE INTACT AND PATENT. NO RESPIRATORY DISTRESS NOTED. PT IS ALWAYS IN PAIN NORCO GIVEN AT 0458FOR BREAKTHROUGH.PT HAD HEMODIALYSIS WITH OUTPUT OF 2.6L LAST NIGHT. PAIN SAFETY MEASURES IN PLACE, BED LOCKED AND IN LOWEST POSITION, CALL LIGHT WITHIN REACH. WILL CONTINUE TO MONITOR AND ENSURE SAFETY.
[2020-03-14] MEDS: PIPERACILLIN /TAZOBACTAM 3.375 G in IV D5W 50 ML IV SCH ×3 (06:51→22:57)
[2020-03-14 07:13] LABS: BASOPHILS % (AUTO) 0.2 % (0.0-2.0); EOSINOPHILS % (AUTO) 1.4 % (0.0-6.0); HEMATOCRIT 29 % (39-51); LYMPHOCYTES # (AUTO) 1.3 /CMM (0.8-4.8); LYMPHOCYTES % (AUTO) 17.2 % (20.0-44.0); MEAN CORPUSCULAR HGB CONC 35 g/dl (31.0-36.0); MEAN CORPUSCULAR VOLUME 83 fL (80-96); MONOCYTES # (AUTO) 0.8 /CMM (0.1-1.30); MONOCYTES % (AUTO) 10.6 % (2.0-12.0); NEUTROPHILS # (AUTO) 5.5 /CMM (1.8-8.9); NEUTROPHILS % (AUTO) 70.6 % (43.0-81.0); PLATELET COUNT (AUTO) 272 /CMM (150-450); RED BLOOD CELL COUNT(AUTO) 3.43 MIL/uL (4.5-6.0); WHITE BLOOD COUNT (AUTO) 7.7 K/uL (4.3-11.0)
[2020-03-14] MEDS: CALCIUM ACETATE 667 MG TABLET PO SCH ×3 (07:34→17:08)
[2020-03-14] MEDS: LORAZEPAM 1 MG TABLET PO PRN ×2 (07:34→16:05)
[2020-03-14] MEDS: SEVELAMER CARBONATE 800 MG TABLET PO SCH ×3 (07:34→17:07)
[2020-03-14] MEDS: PANTOPRAZOLE 40 MG TABLET.DR PO SCH (07:34)
[2020-03-14 07:40] LABS: ALBUMIN 1.6 g/dL (3.4-5.0); BILIRUBIN,TOTAL 0.5 mg/dL (0.2-1.0); CALCIUM, SERUM 6.3 mg/dL (8.5-10.1); MAGNESIUM 1.7 mg/dL (1.8-2.4); PHOSPHORUS 7.5 mg/dL (2.5-4.9); POTASSIUM 3.8 mmol/L (3.5-5.1); TOTAL PROTEIN, SERUM 4.9 g/dL (6.4-8.2)
[2020-03-14 07:44] LABS: CREATININE 11.1 mg/dL (0.6-1.3)
[2020-03-14] MEDS: HEPARIN SODIUM, PORCINE 5000 UNITS/1 ML VIAL SQ SCH ×2 (08:00→20:53)
[2020-03-14] MEDS: VANCOMYCIN 500 MG in IV D5W 100 ML IV PRN (12:30)
--- NOTE | 2020-03-14 18:33 | NUR ---
MS/RN - End of shift summary Patient is A/O x 4 throughout the shift, no apparent distress, generalized body pain relieved by Dilaudid 0.5 mg IVP Q4H PRN, scrotum and left leg still swollen, HD treatment done today 3.6 liters out, tolerated well, sodium slightly improved. Per Dr. Luther, transfer to higher level of care for compartment syndrome, case management aware. Will continue with current medical management.
--- NOTE | 2020-03-14 19:55 | NUR ---
RN NOTES PATIENT A/O X4 AWAKE IN BED. PATIENT ON ROOM AIR, TOLERATING WELL. BREATHING EVEN, NON LABORED. RUE MIDLINE INTACT AND PATENT. NO RESPIRATORY DISTRESS NOTED. SAFETY MEASURES IN PLACE, BED LOCKED AND IN LOWEST POSITION, CALL LIGHT WITHIN REACH. WILL CONTINUE TO MONITOR AND ENSURE SAFETY.
[2020-03-15] MEDS: LORAZEPAM 1 MG TABLET PO PRN ×2 (01:24→17:04)
[2020-03-15] MEDS: HYDROMORPHONE 1 MG/1 ML DISP.SYRIN IV PRN ×6 (02:30→22:43)
[2020-03-15] MEDS: PIPERACILLIN /TAZOBACTAM 3.375 G in IV D5W 50 ML IV SCH (06:33)
--- NOTE | 2020-03-15 06:58 | NUR ---
RN NOTES PATIENT A/O X4 AWAKE IN BED. PATIENT ON ROOM AIR, TOLERATING WELL BREATHING EVEN, NON LABORED. RUE MIDLINE INTACT AND PATENT. NO RESPIRATORY DISTRESS NOTED. NO PAIN AT THIS TIME .SAFETY MEASURES IN PLACE, BED LOCKED AND IN LOWEST POSITION, CALL LIGHT WITHIN REACH. WILL ENDORSE CARE TO DAYSHIFT.
[2020-03-15 07:41] LABS: BASOPHILS % (AUTO) 0.2 % (0.0-2.0); EOSINOPHILS % (AUTO) 2.3 % (0.0-6.0); HEMATOCRIT 27 % (39-51); HEMOGLOBIN 9.2 g/dL (13.5-17.5); LYMPHOCYTES # (AUTO) 1.5 /CMM (0.8-4.8); LYMPHOCYTES % (AUTO) 21.2 % (20.0-44.0); MEAN CORPUSCULAR HGB CONC 34 g/dl (31.0-36.0); MEAN CORPUSCULAR VOLUME 85 fL (80-96); MONOCYTES # (AUTO) 0.6 /CMM (0.1-1.30); MONOCYTES % (AUTO) 7.8 % (2.0-12.0); NEUTROPHILS # (AUTO) 4.9 /CMM (1.8-8.9); NEUTROPHILS % (AUTO) 68.5 % (43.0-81.0); PLATELET COUNT (AUTO) 268 /CMM (150-450); RED BLOOD CELL COUNT(AUTO) 3.17 MIL/uL (4.5-6.0); WHITE BLOOD COUNT (AUTO) 7.2 K/uL (4.3-11.0)
--- NOTE | 2020-03-15 07:56 | NUR ---
MS RN OPENING NOTE PATIENT IS IN BED RESTING. PATIENT IS IN NO ACUTE DISTRESS. PATIENT IS ON ROOM AIR AND OXYGEN AT TIMES ON 2L NC. PATIENT IS HIV POSITIVE PRECAUTION. HOB ELEVATED. SAFETY PRECAUTIONS ARE IN PLACE. BED IN THE LOWEST POSITION WITH SIDE RAILS UP. CALL LIGHT WITHIN REACH. WILL CONTINUE TO MONITOR CLOSELY THROUGHOUT THE SHIFT.
[2020-03-15 08:00] VITALS: BP 154/78
[2020-03-15] MEDS: SEVELAMER CARBONATE 800 MG TABLET PO SCH ×3 (08:15→18:58)
[2020-03-15] MEDS: CALCIUM ACETATE 667 MG TABLET PO SCH ×3 (08:15→18:58)
[2020-03-15] MEDS: PANTOPRAZOLE 40 MG TABLET.DR PO SCH (08:15)
[2020-03-15] MEDS: HEPARIN SODIUM, PORCINE 5000 UNITS/1 ML VIAL SQ SCH ×2 (08:18→21:53)
[2020-03-15 08:38] LABS: CALCIUM, SERUM 6.8 mg/dL (8.5-10.1); POTASSIUM 3.8 mmol/L (3.5-5.1)
[2020-03-15 08:41] LABS: CREATININE 10.4 mg/dL (0.6-1.3)
[2020-03-15] MEDS: PIPERACILLIN /TAZOBACTAM 2.25 G in IV D5W 50 ML IV SCH ×2 (12:36→21:50)
[2020-03-15 16:00] VITALS: BP 160/70
--- NOTE | 2020-03-15 16:40 | NUR ---
SW made a follow-up visit regarding this patient. Patient is a 39 year-old male. Patient was receptive to speaking with this SW. Patient is alert and oriented x4. Patient asked this SW to help the patient transfer to a different facility as patient wants a higher level of care. SW informed patient that the case management team is the one who works with insurances to provide transfer to other facilities however this SW would coordinate with the team to complete this patient's request. Patient also provided this SW verbal consent for the interdisciplinary team to provide medical updates to Horace Dunn Jr. [phone] patient's long-time friend. SW informed this patient that this SW would speak with the interdisciplinary team and follow-up with the patient tomorrow 03/16/2020. Plan: SW to coordinate with case management regarding transfer to a higher level of care and SW remains available for all needs regarding this patient. SW to follow-up with the patient on 03/16/2020.
--- NOTE | 2020-03-15 19:30 | NUR ---
MS RN OPENING NOTE RECEIVED PATIENT IN BED. A/OX3. TOLERATING ROOM AIR. RESPIRATIONS ARE EVEN AND UNLABORED. NO S/S SOB NOTED. C/O PAIN AND REQUEST TO HAVE DILAUDID AND ATIVAN TOGETHER, INFORMED PATIENT WE GIVE THOSE MEDICATIONS 1 HOUR APART, ALTHOUGH THEY DID GIVE THEM TOGETHER I WILL NOT BE GIVING THEM TOGETHER. OFFERED CHOICE OF WHICH MEDICATION TO RECEIVE FIRST, PATIENT REQUESTED DILAUDID. IN NO APPARENT DISTRESS. IV ACCESS IN LJ MIDLINE PATENT AND SALINE LOCKED. BED IS LOW AND LOCKED, HOB ELEVATED IN SEMI FOWLERS, SIDE RIALS UP X3, GREGORY LIGHT WITHIN REACH. HD RN AT BEDSIDE. WILL CONTINUE TO MONITOR.
[2020-03-15 20:00] VITALS: BP 116/77
--- NOTE | 2020-03-15 21:00 | NUR ---
MS RN CLOSING NOTE PATIENT IS IN BED RESTING. PATIENT IS IN NO ACUTE DISTRESS. PATIENT IS ON ROOM AIR AND OXYGEN AT TIMES ON 2L NC. PATIENT IS HIV POSITIVE PRECAUTION. HOB ELEVATED. SAFETY PRECAUTIONS ARE IN PLACE. BED IN THE LOWEST POSITION WITH SIDE RAILS UP. CALL LIGHT WITHIN REACH. ENDORSE PATIENT TO TRANSPORTATION SECURITY OFFICER NURSE FOR MARJORIE.
--- NOTE | 2020-03-15 22:41 | NUR ---
MS AMADOR NOTE ADMINISTERED PRN DILUADID 0.5MG FOR PAIN 11/26. INBILATERAL LEGS AND BACK. Addendum: 03/15/20 at 2243 by MYRIAM SHEETS RN WASTE WITNESSED BY SARA AMADOR. WASTE PLACED IN PHARMACEUTICAL WASTE BIN
[2020-03-16] MEDS: LORAZEPAM 1 MG TABLET PO PRN ×3 (00:14→20:36)
--- NOTE | 2020-03-16 05:25 | NUR ---
MS RN NOTE PATIENT DID NOT RECEIVE VANCO AFTER HD 03/15/20. THERE WAS NO ENDORSEMENT TO ENTER ORDER FOR RANDOM VANCO TROUGH PRIOR TO HD. HD RN WAS ALREADY AT BEDSIDE WHEN SHIFT STARTED. HD ENDED AT 2140. INFORMED INSURANCE DEFENSE PARALEGAL THAT PATIENT HD WAS ALREADY DONE AND NO VANCO TROUGH WAS PLACED PRIOR. INSTRUCTED TO CALL NEPHRO. CALLED DR. ALMONTE'S OFFICE AT [phone]. GIVEN ANOTHER NUMBER [phone] AND [phone]. LEAD TO A CALL CENTER THAT CONNECTED ME WITH DR. AKBAR, INFORMED MD OF SITUATION. RAFFY ORDERED A STAT VANCO TROUGH AND WAIT TO AM PHARMACY COMES IN TO DOSE. ORDERS READ BACK AND WILL INFORM NEXT SHIFT.
[2020-03-16] MEDS: PIPERACILLIN /TAZOBACTAM 2.25 G in IV D5W 50 ML IV SCH ×3 (05:42→21:52)
[2020-03-16] MEDS: HYDROMORPHONE 1 MG/1 ML DISP.SYRIN IV PRN ×5 (06:06→22:28)
--- NOTE | 2020-03-16 06:09 | NUR ---
ms rn note administered prn diluadid .5mg for pain 10/10 in legs and back
[2020-03-16 07:22] LABS: CALCIUM, SERUM 7.3 mg/dL (8.5-10.1); POTASSIUM 3.7 mmol/L (3.5-5.1)
--- NOTE | 2020-03-16 07:30 | NUR ---
MS/RN OPENING NOTE Received patient awake in bed, watching TV, A&O x 4. No complaints of pain/discomfort at this time. Breathing even and non-labored on RA, no SOB noted. No cardiac distress noted. LJ Midline noted, patent and intact, and flushing well. Bed locked to its lowest position, side rails x 2 up, call light in hand. Will continue with current medical management.
[2020-03-16 08:00] VITALS: BP 147/92
--- NOTE | 2020-03-16 08:00 | NUR ---
MS RN CLOSING NOTE PATIENT RESTING IN BED. A/OX3. NO RESP DISTRESS. MANAGED PAIN WITH DILAUDID THROUGHOUT SHIFT. NO DISTRESS. IV ACCESS MAINTAINED IN LJ MIDLINE, CHANGED MIDLINE DRESSING DURING SHIFT. BED REMAINS LOW AND LOCKED, HOB ELEVATED IN SEMI FOWLERS, SIDE RIALS UP X3, CALL LIGHT WITHIN REACH. HD REMOVE 3.6L. WILL ENDORSE TO NEXT SHIFT.
[2020-03-16] MEDS: PANTOPRAZOLE 40 MG TABLET.DR PO SCH (08:12)
[2020-03-16] MEDS: SEVELAMER CARBONATE 800 MG TABLET PO SCH ×3 (08:12→17:22)
[2020-03-16] MEDS: CALCIUM ACETATE 667 MG TABLET PO SCH ×3 (08:12→17:22)
[2020-03-16] MEDS: HEPARIN SODIUM, PORCINE 5000 UNITS/1 ML VIAL SQ SCH ×2 (08:14→21:53)
--- NOTE | 2020-03-16 09:50 | NUR ---
MS/RN NOTE Iona from [facility] reported patient's CKMB 16.5. Notified Ruel REPORT CLERK, no new orders at this time.
--- NOTE | 2020-03-16 14:25 | NUR ---
SW made a follow-up visit with this patient. Patient is alert and oriented x4. Patient reported extreme leg pain however was receptive to meeting with this SW. Patient concern was his pain and the want to be transferred out to a different facility. SW informed the patient that SW could not provide much information regarding this as Case Management team oversees transfer from facilities in accordance to MD recommendations. Patient understood and stated he would bring this up with MD. Patient reported to this SW that he is HIV positive and is not taking his current medications during this admission, SW informed patient that SW would have patient's RN follow-up with medication list and MD. Patient understood. Patient also informed this SW [place] [address] for HIV care. Patient reports that prior to this admission patient was living at a sober living facility called [facility]. Patient's currently plan is following his hospitalization he will return to his sister's home in [place], [place]. Sister Gilmer [phone], patient also provided verbal consent that sister be given information regarding patient's status. SW informed patient that this SW would provided nursing staff with sister's information. SW remains available for all needs regarding this patient.
--- NOTE | 2020-03-16 16:30 | NUR ---
MS/RN NOTE Faxed authorization to release medical records to [facility]. Awaiting for documents.
--- NOTE | 2020-03-16 18:00 | NUR ---
MS/RN NOTE Patient noted with 1 episode of emesis. Per patient, "I think the reason why I vomited was because I lied down quickly after finishing my dinner." Gave mercedes NAIR as ordered.
[2020-03-16] MEDS: ONDANSETRON HCL/PF 4 MG/2 ML VIAL IVP PRN (18:37)
--- NOTE | 2020-03-16 18:54 | NUR ---
TEXTED DR. COLEY FOR STAT MRI APPROVAL.
--- NOTE | 2020-03-16 19:30 | NUR ---
MS/RN CLOSING NOTE Patient awake in bed, watching TV, A&O x 4. All needs met and attended to. No complaints of pain/discomfort throughout shift. Breathing even and non-labored on RA, no SOB noted. No cardiac distress noted. LJ Midline noted, patent and intact, and flushing well. R femoral HD cath in place with clean dry dressing intact. Fall precautions maintained. Will endorse to process manager nurse.
[2020-03-16] MEDS ORDERED: LIDOCAINE 1% INJ 50 ML MDV IJ STA (19:36)
--- NOTE | 2020-03-16 20:45 | NUR ---
RN NOTES DR. RAMSEY CAME AND DID TRICIA COMPARTMENT PRESSURE CHECK , PT TOLERATES THE PATIENT FAIRLY
[2020-03-16 21:31] VITALS: BP 139/86
[2020-03-16] MEDS: MUPIROCIN OINT 2% 22 GM TUBE TP SCH (21:53)
--- NOTE | 2020-03-16 22:30 | NUR ---
RN NOTES COMPLAINED OF LEFT LEG- DILAUDID 0.5MG IV GIVEN ORDERED, V/S STABLE
[2020-03-17] MEDS: HYDROMORPHONE 1 MG/1 ML DISP.SYRIN IV PRN ×4 (04:14→22:00)
--- NOTE | 2020-03-17 04:21 | NUR ---
rn notes COMPLAINED OF LEFT LEG PAIN- DILAUDID 0.5MG IV GIVEN ORDERED, V/S STABLE
[2020-03-17] MEDS: PIPERACILLIN /TAZOBACTAM 2.25 G in IV D5W 50 ML IV SCH ×3 (05:19→21:41)
--- NOTE | 2020-03-17 07:00 | NUR ---
RN NOTES AWAKE, MORNING CARE RENDERED, NOT IN DISTRESS, CALL LIGHT WITHIN REACH, [id number], PT. NEEDS ATTENDED
[2020-03-17 08:00] VITALS: BP 148/98
[2020-03-17] MEDS: SEVELAMER CARBONATE 800 MG TABLET PO SCH ×3 (08:32→18:01)
[2020-03-17] MEDS: CALCIUM ACETATE 667 MG TABLET PO SCH ×3 (08:32→18:01)
[2020-03-17] MEDS: PANTOPRAZOLE 40 MG TABLET.DR PO SCH (08:33)
[2020-03-17] MEDS: HEPARIN SODIUM, PORCINE 5000 UNITS/1 ML VIAL SQ SCH ×2 (08:34→21:42)
[2020-03-17] MEDS: MUPIROCIN OINT 2% 22 GM TUBE TP SCH ×2 (09:50→21:41)
[2020-03-17] MEDS: LORAZEPAM 1 MG TABLET PO PRN ×2 (10:33→23:09)
[2020-03-17] MEDS: HYDROCODONE/APAP 5/325MG TABLET PO PRN ×2 (11:37→15:32)
[2020-03-17 16:00] VITALS: BP 140/78
[2020-03-17] MEDS ORDERED: VANCOMYCIN 1 GM in IV D5W 250 ML IV ONE (18:00)
--- NOTE | 2020-03-17 19:50 | NUR ---
MS RN NOTE: PATIENT RESTING IN BED, NO ACUTE DISTRESS NOTED. BREATHING EVEN AND UNLABORED, NO SOB NOTED. MIDLINE TO LJ IN PLACE. RIGHT FEMORAL HD CATH IN PLACE, NO BLEEDING NOTED. BED LOCKED AND IN LOWEST POSITION, CALL LIGHT IN REACH. WILL CONTINUE TO MONITOR THROUGHOUT SHIFT.
[2020-03-17 20:55] VITALS: BP 147/92
[2020-03-17] MEDS: ONDANSETRON HCL/PF 4 MG/2 ML VIAL IVP PRN (21:45)
--- NOTE | 2020-03-17 22:00 | NUR ---
MS RN NOTE: PATIENT COMPLAINS OF PAIN TO LEFT LEG/THIGH 10/10, DILAUDID 0.5MG IV GIVEN PER MD ORDER. PATIENT ALSO COMPLAINS OF NAUSEA, ZOFRAN 4MG IV GIVEN PER MD ORDER. WILL CONTINUE TO MONITOR THROUGHOUT SHIFT.
--- NOTE | 2020-03-17 23:10 | NUR ---
MS RN NOTE: PATIENT ANXIOUS AND HAVING INSOMNIA AND REQUESTING FOR ATIVAN. ATIVAN 1MG 1 TAB ORAL GIVEN PER MD ORDER. WILL CONTINUE TO MONITOR THROUGHOUT SHIFT.
[2020-03-18] MEDS: HYDROMORPHONE 1 MG/1 ML DISP.SYRIN IV PRN ×6 (02:29→23:07)
--- NOTE | 2020-03-18 02:45 | NUR ---
MS RN NOTE: PATIENT COMPLAINS OF PAIN TO LEFT LEG/THIGH 10/10, DILAUDID 0.5MG IV GIVEN PER MD ORDER. WILL CONTINUE TO MONITOR THROUGHOUT SHIFT.
[2020-03-18] MEDS: VANCOMYCIN 500 MG in IV D5W 100 ML IV PRN (03:09)
[2020-03-18] MEDS: PIPERACILLIN /TAZOBACTAM 2.25 G in IV D5W 50 ML IV SCH ×3 (05:25→21:28)
[2020-03-18 06:50] LABS: BASOPHILS # (AUTO) 0.1 /CMM (0.0-0.2); BASOPHILS % (AUTO) 0.5 % (0.0-2.0); EOSINOPHILS % (AUTO) 1.5 % (0.0-6.0); HEMATOCRIT 26 % (39-51); HEMOGLOBIN 8.9 g/dL (13.5-17.5); LYMPHOCYTES % (AUTO) 15.2 % (20.0-44.0); MEAN CORPUSCULAR HGB CONC 34 g/dl (31.0-36.0); MEAN CORPUSCULAR VOLUME 86 fL (80-96); MONOCYTES % (AUTO) 7.5 % (2.0-12.0); NEUTROPHILS # (AUTO) 9.7 /CMM (1.8-8.9); NEUTROPHILS % (AUTO) 75.3 % (43.0-81.0); PLATELET COUNT (AUTO) 492 /CMM (150-450); RED BLOOD CELL COUNT(AUTO) 3.06 MIL/uL (4.5-6.0); WHITE BLOOD COUNT (AUTO) 12.9 K/uL (4.3-11.0)
--- NOTE | 2020-03-18 07:06 | NUR ---
MS RN NOTE: PATIENT RESTING IN BED, NO ACUTE DISTRESS NOTED. BREATHING EVEN AND UNLABORED, NO SOB NOTED. MIDLINE TO LJ IN PLACE. RIGHT FEMORAL HD CATH IN PLACE, NO BLEEDING NOTED. PATIENT COMPLAINS OF PAIN TO LEFT THIGH/LEG 10/, DILAUDID 0.5MG IV GIVEN PER MD ORDER. BED LOCKED AND IN LOWEST POSITION, CALL LIGHT IN REACH. WILL ENDORSE TO DAY NURSE TO CONTINUE WITH PLAN OF CARE.
[2020-03-18 07:20] LABS: CALCIUM, SERUM 7.9 mg/dL (8.5-10.1); POTASSIUM 4.1 mmol/L (3.5-5.1)
[2020-03-18 07:26] LABS: CREATININE 8.7 mg/dL (0.6-1.3)
[2020-03-18 08:00] VITALS: BP 150/99
[2020-03-18] MEDS: SEVELAMER CARBONATE 800 MG TABLET PO SCH ×3 (10:45→17:47)
[2020-03-18] MEDS: PANTOPRAZOLE 40 MG TABLET.DR PO SCH (10:45)
[2020-03-18] MEDS: CALCIUM ACETATE 667 MG TABLET PO SCH ×3 (10:45→17:47)
[2020-03-18] MEDS: HEPARIN SODIUM, PORCINE 5000 UNITS/1 ML VIAL SQ SCH ×2 (10:47→21:30)
[2020-03-18] MEDS: MUPIROCIN OINT 2% 22 GM TUBE TP SCH ×2 (10:53→21:28)
[2020-03-18] MEDS: LORAZEPAM 1 MG TABLET PO PRN ×2 (11:43→17:47)
[2020-03-18 16:00] VITALS: BP 147/89
--- NOTE | 2020-03-18 18:00 | NUR ---
MEDICATED X2 WITH ATIVAN AND X2 WITH DILAUDID.AT END OF SHIFT GIVEN ZOFRAN.
[2020-03-18] MEDS: ONDANSETRON HCL/PF 4 MG/2 ML VIAL IVP PRN (19:15)
[2020-03-18 20:00] VITALS: BP 139/79
[2020-03-18] MEDS: HYDROCODONE/APAP 5/325MG TABLET PO PRN (21:28)
--- NOTE | 2020-03-18 21:30 | NUR ---
MS RN NOTE: PATIENT STILL COMPLAINS OF PAIN TO LEFT LEG/THIGH 09/26, NORCO 5/325MG 1 TAB ORAL GIVEN PER MD ORDER. WILL CONTINUE TO MONITOR THROUGHOUT SHIFT.
--- NOTE | 2020-03-18 23:10 | NUR ---
MS RN NOTE: PATIENT COMPLAINS OF PAIN TO LEFT LEG/THIGH 10/10, DILAUDID 0.5MG IV GIVEN PER MD ORDER. WILL CONTINUE TO MONITOR THROUGHOUT SHIFT.
[2020-03-19] VITALS (10 sets, daily range): BP systolic 133–162; BP diastolic 68–99
[2020-03-19] MEDS: ONDANSETRON HCL/PF 4 MG/2 ML VIAL IVP PRN (03:07)
[2020-03-19] MEDS: HYDROMORPHONE 1 MG/1 ML DISP.SYRIN IV PRN ×5 (03:08→20:40)
[2020-03-19] MEDS: PIPERACILLIN /TAZOBACTAM 2.25 G in IV D5W 50 ML IV SCH ×3 (05:13→21:34)
--- NOTE | 2020-03-19 06:50 | NUR ---
MS RN NOTE: PATIENT RESTING IN BED, NO ACUTE DISTRESS NOTED. BREATHING EVEN AND UNLABORED, NO SOB NOTED. MIDLINE TO LJ IN PLACE. RIGHT FEMORAL HD CATH IN PLACE, NO BLEEDING NOTED. BED LOCKED AND IN LOWEST POSITION, CALL LIGHT IN REACH. WILL ENDORSE TO DAY NURSE TO CONTINUE WITH PLAN OF CARE.
[2020-03-19 08:20] LABS: BASOPHILS % (AUTO) 0.3 % (0.0-2.0); EOSINOPHILS % (AUTO) 0.6 % (0.0-6.0); HEMATOCRIT 22 % (39-51); HEMOGLOBIN 7.4 g/dL (13.5-17.5); LYMPHOCYTES # (AUTO) 1.8 /CMM (0.8-4.8); LYMPHOCYTES % (AUTO) 11.5 % (20.0-44.0); MEAN CORPUSCULAR HGB CONC 34 g/dl (31.0-36.0); MEAN CORPUSCULAR VOLUME 86 fL (80-96); MONOCYTES # (AUTO) 1.2 /CMM (0.1-1.30); MONOCYTES % (AUTO) 7.9 % (2.0-12.0); NEUTROPHILS # (AUTO) 12.3 /CMM (1.8-8.9); NEUTROPHILS % (AUTO) 79.7 % (43.0-81.0); PLATELET COUNT (AUTO) 570 /CMM (150-450); RED BLOOD CELL COUNT(AUTO) 2.54 MIL/uL (4.5-6.0); WHITE BLOOD COUNT (AUTO) 15.4 K/uL (4.3-11.0)
[2020-03-19 08:38] LABS: CALCIUM, SERUM 8.2 mg/dL (8.5-10.1); POTASSIUM 4.4 mmol/L (3.5-5.1)
[2020-03-19 08:39] LABS: CREATININE 10.3 mg/dL (0.6-1.3)
[2020-03-19] MEDS: HEPARIN SODIUM, PORCINE 5000 UNITS/1 ML VIAL SQ SCH (09:00)
[2020-03-19] MEDS: PANTOPRAZOLE 40 MG TABLET.DR PO SCH (09:16)
[2020-03-19] MEDS: CALCIUM ACETATE 667 MG TABLET PO SCH ×3 (09:16→18:17)
[2020-03-19] MEDS: SEVELAMER CARBONATE 800 MG TABLET PO SCH ×3 (09:16→18:17)
[2020-03-19] MEDS: MUPIROCIN OINT 2% 22 GM TUBE TP SCH ×2 (09:22→23:41)
--- NOTE | 2020-03-19 09:29 | NUR ---
Patient Hgb decreased 7.4 this morning, hold Heparin 5,000 units by .
[2020-03-19] MEDS: LORAZEPAM 1 MG TABLET PO PRN ×2 (13:58→23:32)
--- NOTE | 2020-03-19 18:00 | NUR ---
RN closing Patient in bed resting, does no appears distress or discomfort. Skin is warm to touch, keep clean/dry, intact midline on right upper arm. Respiratory even and unlabored with oxygen at 2L via NC O2sat 92%. Kept elevated HOB for ensure air way and aspiration precaution and lowest bed for safety. Call light within reach, will endorse retail shift leader
--- NOTE | 2020-03-19 18:00 | NUR ---
RN Opening note Received patient in bed, awaken able to responds all stimuli, Pt does no c/o pain or distress. Skin is warm to touch keep clean/dry intact IV site, respiratory even and unlabored with oxygen at 2L via NC O2sat 924%. Kept locked bed with elevated HOB for aspiration precaution and ensure airway and lowest bed foe safety. Call light within reach, will continue to monitor.
--- NOTE | 2020-03-19 20:00 | NUR ---
RN OPENING NOTES RECEIVED PATIENT IN BED AWAKE, ALERT AND ORIENTED X4. RESTLESS, ANXIOUS, NO S/S OF RESPIRATORY DISTRESS, SKIN IS WARM TO TOUCH, DRY AND INTACT. RESPIRATION EVEN AND UNLABORED WITH EQUAL RISE AND FALL OF THE CHEST. ON 2L O2 VIA NC. PATIENT ABLE TO VERBALIZE NEEDS. CALL LIGHT WITHIN REACH. BED IN LOWEST POSITION AND LOCKED. WILL CONTINUE TO MONITOR PATIENT THROUGHOUT SHIFT.
--- NOTE | 2020-03-19 20:40 | NUR ---
RN NOTES PT C/O GENERALIZED BODY PAIN. RATES PAIN LEVEL 9/10. DILAUDID 0.5ML ADMINISTERED ORDERED. WILL CONTINUE TO MONITOR.
[2020-03-19] MEDS: ZOLPIDEM TARTRATE 5 MG TABLET PO PRN (21:31)
--- NOTE | 2020-03-19 21:31 | NUR ---
RN NOTES: PATIENT REQUESTED FOR AMBIEN FOR SLEEP, AMBIEN 5MG 1 TAB GIVEN PO AT 2130. WILL CONTINUE TO MONITOR
[2020-03-19] MEDS: ACETAMINOPHEN 325 MG TABLET PO PRN (22:35)
--- NOTE | 2020-03-19 23:32 | NUR ---
RN NOTES: PATIENT WAS ANXIOUS, RESTLESS, REQUESTING ATIVAN. ATIVAN 1MG/1TAB GIVEN PO PRN ORDERED AT 2332. WILL CONTINUE TO MONITOR.
[2020-03-20] MEDS: HEPARIN SODIUM, PORCINE 5000 UNITS/1 ML VIAL SQ SCH ×2 (00:01→09:00)
[2020-03-20] MEDS: HYDROMORPHONE 1 MG/1 ML DISP.SYRIN IV PRN (05:07)
--- NOTE | 2020-03-20 05:08 | NUR ---
RN NOTES PT C/O LEFT LOWER EXTREMITY PAIN. RATES PAIN LEVEL 8/10. DILAUDID 0.5ML ADMINISTERED ORDERED AT 0507. WILL CONTINUE TO MONITOR.
[2020-03-20] MEDS: PIPERACILLIN /TAZOBACTAM 2.25 G in IV D5W 50 ML IV SCH (05:23)
[2020-03-20 06:50] LABS: BASOPHILS % (AUTO) 0.3 % (0.0-2.0); EOSINOPHILS % (AUTO) 0.4 % (0.0-6.0); HEMATOCRIT 24 % (39-51); HEMOGLOBIN 7.9 g/dL (13.5-17.5); LYMPHOCYTES # (AUTO) 1.4 /CMM (0.8-4.8); LYMPHOCYTES % (AUTO) 8.2 % (20.0-44.0); MEAN CORPUSCULAR HGB CONC 34 g/dl (31.0-36.0); MEAN CORPUSCULAR VOLUME 88 fL (80-96); MONOCYTES # (AUTO) 1.3 /CMM (0.1-1.30); MONOCYTES % (AUTO) 7.7 % (2.0-12.0); NEUTROPHILS % (AUTO) 83.4 % (43.0-81.0); PLATELET COUNT (AUTO) 646 /CMM (150-450); RED BLOOD CELL COUNT(AUTO) 2.69 MIL/uL (4.5-6.0); WHITE BLOOD COUNT (AUTO) 16.7 K/uL (4.3-11.0)
--- NOTE | 2020-03-20 07:30 | NUR ---
MS RN OPENING NOTES PATIENT IS IN BED AWAKE AND VERBALLY RESPONSIVE. ALERT AND ORIENTED X4, ABLE TO MAKE NEEDS KNOWN. BREATHING EVEN, ON O2 AT 5L VIA SIMPLE MASK, CONTINUOUS O2 SAT MONITORED, CURRENTLY BETWEEN 91-95%, DESATURATING DURING EPISODE OF EXERTION BUT NO RESPIRATORY DISTRESS. LJ MIDLINE INTACT AND PATENT. RIGHT FEMORAL HD CATH DRESSING C/D/I. SAFETY PRECS IN PLACE: BED IN LOCKED AND ON LOWEST POSITION, SR UP X2, CALL LIGHT WITHIN REACH. WILL CONTINUE TO MONITOR.
[2020-03-20 07:50] LABS: CALCIUM, SERUM 8.5 mg/dL (8.5-10.1); POTASSIUM 4.8 mmol/L (3.5-5.1)
[2020-03-20 07:52] LABS: CREATININE 9.3 mg/dL (0.6-1.3)
[2020-03-20] MEDS: SEVELAMER CARBONATE 800 MG TABLET PO SCH (07:56)
[2020-03-20] MEDS: LORAZEPAM 1 MG TABLET PO PRN (07:56)
[2020-03-20] MEDS: PANTOPRAZOLE 40 MG TABLET.DR PO SCH (07:56)
[2020-03-20] MEDS: CALCIUM ACETATE 667 MG TABLET PO SCH (07:57)
--- NOTE | 2020-03-20 08:13 | NUR ---
RN CLOSING NOTES PATIENT IN BED AWAKE, ALERT AND ORIENTED X4. NO S/S OF RESPIRATORY DISTRESS, SKIN IS WARM TO TOUCH, DRY AND INTACT. RESPIRATION EVEN AND UNLABORED WITH EQUAL RISE AND FALL OF THE CHEST. ON 2L O2 VIA NC. PATIENT ABLE TO VERBALIZE NEEDS. CALL LIGHT WITHIN REACH. BED IN LOWEST POSITION AND LOCKED. ENDORSED TO AM SHIFT
--- NOTE | 2020-03-20 08:50 | NUR ---
RN NOTES PATIENT REPORT GIVEN TO MARJORIE ROSSI, AT [facility] ([phone])
[2020-03-20] MEDS: MUPIROCIN OINT 2% 22 GM TUBE TP SCH (08:51)
--- NOTE | 2020-03-20 10:40 | NUR ---
CARBON PAPER INTERLEAFER NOTES PATIENT DISCHARGED TODAY TO [facility], [address] ROOM 4B. DISCHARGE INSTRUCTIONS AND EDUCATION PROVIDED TO PATIENT AND MARJORIE ROSSI AT [facility]. DISCHARGE FORM AND BELONGINGS LIST FORMS SIGNED BY PATIENT; BELONGINGS ACCOUNTED FOR. NAME ARMBAND AND IV LINES KEPT INTACT FOR ID TRANSFER PURPOSES. VS OBTAINED. PATIENT REFUSED PHOTO TO BE TAKEN OF SKIN ISSUE ON LEFT GLUTEUS. PATIENT WAS PICKED UP BY 2 LEAD INFRASTRUCTURE ARCHITECT VIA [facility]. CHARGE NURSE AND MD AWARE OF DISCHARGE.
[2020-03-21 09:56] LABS: *HIV-1 RNA BY PCR <20 copies/mL (.)
== END 2020-03-20 10:15 | disposition short-term general hospital (02) | DRG 351 ==
LOC: EDBD 08:16 → ER 08:16 → TRANSITION 10:38 → TELE 03-09 12:09 → MED 03-14 09:33
PROVIDERS: ATTEND Internal Medicine
PROC: 5A1D70Z Performance of Urinary Filtration, Intermittent, Less than 6 Hours Per Day (ICD-10-PCS; 2020-03-07)
PROC: 05HC33Z Insertion of Infusion Device into Left Basilic Vein, Percutaneous Approach (ICD-10-PCS; principal; 2020-03-12)
PROC: 06HY33Z Insertion of Infusion Device into Lower Vein, Percutaneous Approach (ICD-10-PCS; 2020-03-13)
PROC: 30233N1 Transfusion of Nonautologous Red Blood Cells into Peripheral Vein, Percutaneous Approach (ICD-10-PCS; 2020-03-19)
DX: T79.A22A Traumatic compartment syndrome of left lower extremity, initial encounter (principal); N17.0 Acute kidney failure with tubular necrosis; M62.82 Rhabdomyolysis; K72.00 Acute and subacute hepatic failure without coma; I21.4 Non-ST elevation (NSTEMI) myocardial infarction; E87.5 Hyperkalemia; G92 Toxic encephalopathy; L03.317 Cellulitis of buttock; E87.1 Hypo-osmolality and hyponatremia; M21.372 Foot drop, left foot; N18.9 Chronic kidney disease, unspecified; J90 Pleural effusion, not elsewhere classified; E44.0 Moderate protein-calorie malnutrition; E83.39 Other disorders of phosphorus metabolism; F15.10 Other stimulant abuse, uncomplicated; I25.10 Atherosclerotic heart disease of native coronary artery without angina pectoris; Z20.822 Contact with and (suspected) exposure to COVID-19; Z59.0 Homelessness; E83.42 Hypomagnesemia; N13.9 Obstructive and reflux uropathy, unspecified; E83.51 Hypocalcemia; E87.2 Acidosis; E87.70 Fluid overload, unspecified; F41.9 Anxiety disorder, unspecified; M48.061 Spinal stenosis, lumbar region without neurogenic claudication; X58.XXXA Exposure to other specified factors, initial encounter; Y92.9 Unspecified place or not applicable
CPT/HCPCS: 36415; 70450-TC; 71045-TC; 72131-TC; 72192-TC; 72195-TC; 73590-TC; 73630-TC; 73721-TC; 76770-TC; 76882; 80048-TC; 80053-TC; 80061-TC; 80076-TC; 80202-TC; 81001; 82550-TC; 82553; 82570-TC; 83605-TC; 83735-TC; 83880; 83935-TC; 84100-TC; 84155; 84155-TC; 84165; 84300-TC; 84443-TC; 84484-TC; 85025-TC; 85610-TC; 85652-TC; 85730-TC; 86704; 86705; 86706; 86803; 86850-TC; 87040-TC; 87081-TC; 87340; 87536; 90935-TC; 93307-TC; 93926-TC; 93970-TC; A6403; G0378; G0480; J0610; J0692; J1170; J1644; J1940; J2060; J2405; J2543; J3370; J3490; J7030; J7050; J7060; P9016-BL; U0003